=== PATIENT | female | born 2005 | race Caucasian/White ===

== ENCOUNTER 2024-05-12 11:28 | Outpatient (CLI) | payer OTHER, SELFPAY | END 2024-05-12 11:29 | disposition home or self-care (01) | PROVIDERS: PCP Family Medicine; Visit Provider Family Medicine | DX: E28.2 Polycystic ovarian syndrome (principal) | CPT/HCPCS: 80053; 84439; 84443; 86038; 86140 ==

== ENCOUNTER 2024-05-26 11:17 | Outpatient (CLI) | payer OTHER, SELFPAY ==
--- NOTE | 2024-05-26 11:30 | CRLHL7_ITS ---
For Patients: As a result of the Century Cures Act, medical imaging exams and procedure reports are released immediately into your electronic medical record. You may view this report before your referring provider. If you have questions, please contact your health care provider. Indication: Lump Technique: Grayscale and color Doppler ultrasound of the right neck soft tissues performed with images of the left neck performed for comparison purposes. Comparison: None Findings: Right cervical lymph node is present measuring 10 x 3 x 8 millimeters. Normal internal vascularity and normal central fatty hilum. No fluid collection. No suspicious mass. Impression: Normal right cervical lymph node measures 1 cm. No suspicious findings. Dictated by Andrew Malloy MD @ 05/26/2024 12:10:33 PM (Electronically Signed)
== END 2024-05-26 11:18 | disposition home or self-care (01) ==
LOC: US 11:17
PROVIDERS: Visit Provider Family Medicine
DX: R22.1 Localized swelling, mass and lump, neck (principal); E28.2 Polycystic ovarian syndrome
CPT/HCPCS: 76536